=== PATIENT | male | born 1945 | race Caucasian/White ===

== ENCOUNTER → 2017-09-14 07:32 | Emergency (ER) | payer OTHER ==
[~2017-09-14] VITALS: Ht 177.8 cm; Wt 63.5 kg
[~2017-09-14 07:32] MED LIST: AMLO5TAB2 PO; GABA-339 PO; LISI40TA PO; SODIUM CHLORIDE 0.9% 1,000 ML IV ONE
[2017-09-14 08:38] LABS: Hematocrit 41.1 % (41.0-53.0); Hemoglobin 12.7 g/dL (13.5-17.5); Mean Corpuscular Hemoglobin 30.1 pg (28.0-32.0); Mean Corpuscular Hgb Conc. 30.8 g/dL (32.0-36.0); Mean Corpuscular Volume 97.7 fL (80.0-100.0); Mean Platelet Volume 7.2 fL (6.9-10.8); Platelet Count (auto) 680 10^3/uL (140-450); Red Cell Distribution Width 16.1 % (11.8-14.3)
[2017-09-14 08:42] LABS: Metamyelocytes % 0; Myelocytes % 0; Promyelocytes % 0; Reactive Lymphocytes 0
[2017-09-14 09:10] LABS: Alkaline Phosphatase 101 U/L (45-117); Anion Gap 7 (5-15); Blood Urea Nitrogen 12 mg/dL (7-18); Carbon Dioxide 27 mmol/L (21-32); Chloride 103 mmol/L (98-107); GFR African American 162 mL/min; GFR Non-African American 134 mL/min; Glucose 92 mg/dL (74-106); Potassium 4.4 mmol/L (3.5-5.1); Sodium 137 mmol/L (136-145)
[2017-09-14 09:11] LABS: Albumin 3.6 g/dL (3.4-5.0); Aspartate Aminotransferase 36 U/L (15-37); Bilirubin, Total 0.6 mg/dL (0.2-1.0); Calcium 9.2 mg/dL (8.5-10.1); Large Platelets FEW; Platelet Estimate Increased; Total Protein 7.2 g/dL (6.4-8.2)
[2017-09-14 10:22] LABS: Urine Bilirubin Negative (Negative); Urine Blood Negative /uL (Negative); Urine Color Yellow (Yellow); Urine Glucose Normal (Normal); Urine Ketone Negative (Negative); Urine Nitrite Negative (Negative); Urine RBC 1 /hpf (0 - 3); Urine Urobilinogen Normal (Negative)
[2017-09-14 10:48] VITALS: BP 142/86
== END | disposition home or self-care (01) ==
LOC: EDUNIT# 07:27 → EDBD 07:32 → ER 07:32
DX: S42.92XA Fracture of left shoulder girdle, part unspecified, initial encounter for closed fracture (principal); S22.069D Unspecified fracture of T7-T8 vertebra, subsequent encounter for fracture with routine healing; I10 Essential (primary) hypertension; W01.0XXA Fall on same level from slipping, tripping and stumbling without subsequent striking against object, initial encounter; Y93.89 Activity, other specified; Y99.8 Other external cause status; Y92.89 Other specified places as the place of occurrence of the external cause
CPT/HCPCS: 29105; 36415; 80053; 81001; 81002; 82962; 83735; 84443; 84484; 85007; 85027; 93005; 96360; 96361

== ENCOUNTER 2018-05-08 15:13 | Emergency (ER) | payer OTHER ==
[~2018-05-08] VITALS: Ht 170.2 cm; Wt 68.0 kg
[~2018-05-08 15:13] MED LIST changes: -SODIUM CHLORIDE 0.9% 1,000 ML IV ONE
[2018-05-08] MEDS ORDERED: SODIUM CHLORIDE 0.9% 1,000 ML IV ONE (15:16)
[2018-05-08 16:04] LABS: Basophils # (auto) 0 uL; Basophils % (auto) 0.5 % (0.0-2.0); Eosinophils # (auto) 0.4 uL; Eosinophils % (auto) 5.8 % (0.0-7.0); Hemoglobin 13.8 g/dL (13.5-17.5); Lymphocytes # (auto) 1.9 uL; Lymphocytes % (auto) 25.5 % (10.0-50.0); Mean Corpuscular Hemoglobin 31.6 pg (28.0-32.0); Mean Corpuscular Hgb Conc. 32.9 g/dL (32.0-36.0); Mean Corpuscular Volume 96.1 fL (80.0-100.0); Monocytes # (auto) 0.9 uL; Monocytes % (auto) 12.7 % (0.0-12.0); Neutrophils # (auto) 4.1 uL; Neutrophils % (auto) 55.5 % (37.0-80.0); Nucleated Red Blood Cells % 0.1 %; Platelet Count (auto) 332 10^3/uL (140-450); Red Blood Cells 4.37 10^6/uL (4.5-5.90); Red Cell Distribution Width 14.9 % (11.8-14.3); White Blood Cell 7.3 10^3/uL (4.4-10.8)
[2018-05-08 16:19] LABS: Albumin 3.3 g/dL (3.4-5.0); Anion Gap 5 (5-15); Blood Urea Nitrogen 14 mg/dL (7-18); Calcium 8.7 mg/dL (8.5-10.1); Carbon Dioxide 31 mmol/L (21-32); Chloride 107 mmol/L (98-107); Potassium 4.4 mmol/L (3.5-5.1); Sodium 143 mmol/L (136-145)
[2018-05-08 16:21] LABS: Alanine Aminotransferase 21 U/L (16-61); Aspartate Aminotransferase 19 U/L (15-37); BUN/Creatinine Ratio 17.3; GFR African American 121 mL/min; GFR Non-African American 100 mL/min; Glucose 84 mg/dL (74-106)
[2018-05-08 16:27] LABS: Alkaline Phosphatase 65 U/L (45-117); Bilirubin, Total 0.2 mg/dL (0.2-1.0); Total Protein 6.5 g/dL (6.4-8.2)
[2018-05-08 18:58] VITALS: BP 132/83
== END 2018-05-08 20:29 | disposition home or self-care (01) ==
LOC: EDBD 15:13 → ER 15:15
DX: R42 Dizziness and giddiness (principal); I10 Essential (primary) hypertension; F17.210 Nicotine dependence, cigarettes, uncomplicated; R53.1 Weakness; Z79.899 Other long term (current) drug therapy
CPT/HCPCS: 36415; 70450; 71045; 80053; 84484; 85025; 93005; 96360; 99285; J7030